=== PATIENT | female | born 1995 | race Hispanic/Latino ===

== ENCOUNTER 2018-04-28 06:18 | Day surgery (SDC) | payer OTHER ==
[2018-04-28] MEDS ORDERED: Midazolam 2 MG/2 ML VIAL ONE ×3 (07:23→08:58)
[2018-04-28] MEDS ORDERED: Propofol 10 mg/ml Inj (20 ML) ONE ×2 (07:23→09:22)
[2018-04-28] MEDS ORDERED: Lidocaine 2% PF (10 ml) Amp ONE (07:51)
[2018-04-28] MEDS ORDERED: Gentamicin 80mg/50ml NS 80 MG/50 ML BAG IVPB ONE (08:03)
[2018-04-28] MEDS ORDERED: Vancomycin 1 g Inj ONE (08:26)
[2018-04-28] MEDS: Bupivacaine HCl 0.5% PF (30 ml) Inj ONE ×2 (08:45→08:51)
[2018-04-28] MEDS ORDERED: Lactated Ringer's 1,000 ML IV ONE (09:00)
[2018-04-28] MEDS ORDERED: Lactated Ringer's 1,000 ML IV SCH (10:15)
[2018-04-28] MEDS: HYDROmorphone 0.5 mg/0.5 ml ISec IVP PRN ×5 (10:15→13:40)
[2018-04-28 10:22] VITALS: RESP 18
[2018-04-28 10:24] VITALS: BMI 25.8
[2018-04-28 16:54] VITALS: BP 128/67; PULSE 99; TEMP 97.8; O2SAT 97
--- NOTE | 2018-04-29 10:13 | OP ---
PROCEDURE DATE: 04/28/2018 INDICATIONS: The patient is a 22-year-old female known to me with urge incontinence, overactive bladder, nocturia. All of these have been refractory to oral medications including anticholinergics and beta-3 agonist and given that, she has exhausted medical treatments. I counseled her that her remaining options were to perform intravesical Botox versus sacral neuromodulation. We discussed the risks and benefits and alternatives of both, and the patient elected to try sacral neuromodulation specifically the risks identified prior to the procedure were infection, bleeding, failure to control the urge incontinence and pelvic pain, the inability to undergo a pelvic MRI in the future. I counseled the patient that if she chooses to have children in the future, she should have the device turned off. The patient is adamant. She does not plan on ever having children, and therefore she is not concerned about it. After this discussion with both prior to the day of surgery and on the day of surgery, we proceeded to the operating room today for a stage 1 InterStim. PREOPERATIVE DIAGNOSES: Urge incontinence (refractory), overactive bladder (refractory), pelvic pain. PROCEDURE: Stage 1 InterStim bilaterally. SURGEON: Duc Osorio M.D. ESTIMATED BLOOD LOSS FOR THE PROCEDURE: Minimal. ANESTHESIA: Local with sedation. This is a clean case. OPERATIVE DETAIL: The patient was brought to the operating room and placed in the prone position. Sedation was administered. We then prepped and draped the patient in the usual sterile fashion including a pre-scrub with chlorhexidine wash and alcohol-based prep. The patient then had a time-out called, verifying the patient name, procedure, antibiotics, and allergies. We proceeded to infiltrate the 0.5% Marcaine and 1% lidocaine into the skin in order to facilitate the placement of our leads. Once this was done, a fluoroscope was used to aleyda the bony landmarks, and ultimately a right and left S3 lead was placed under fluoroscopic guidance. The guide needle was verified the patient in correct position, and the leads were ultimately deployed with a lateral flare consistent with good placement, testing of the leads confirms. Low-voltage stimulation with both toe reflex as well as the patient's feeling the stimulation appropriately. The leads were then buried, and a pouch was created by incising the skin and making a pocket which we ultimately used to place the permanent device if she passes her trial. Once this was done, she was connected to the external device. The pocket was closed. The patient tolerated the procedure well and follow up with me in approximately one week for either device implantation or lead removal. Duc Osorio M.D. MTDD
--- NOTE | 2018-04-29 16:18 | RAD ---
Date of service: 04/28/2018 PROCEDURE: Intraoperative fluoroscopy HISTORY: INTERSTIM INSERTION STAGE 1 COMPARISON: Not available TECHNIQUE: Intraoperative fluoroscopy was provided for InterStim insertion. Total time of fluoroscopy was 92.7 sec. Cumulative dose was 56.15 mGy. FINDINGS: Multiple fluoroscopic spot films are submitted. IMPRESSION: Fluoroscopy provided
== END 2018-04-28 17:55 | disposition home or self-care (01) ==
LOC: H.OPSURG 06:18
PROVIDERS: ATTEND Urology
DX: N39.41 Urge incontinence (principal); E78.5 Hyperlipidemia, unspecified; M32.9 Systemic lupus erythematosus, unspecified; M45.9 Ankylosing spondylitis of unspecified sites in spine; N32.81 Overactive bladder
CPT/HCPCS: 64561; C1778; J1170; J1580; J2250; J2704; J3010; J7120